=== PATIENT | male | born 1980 | race Caucasian/White ===

== ENCOUNTER 2016-08-30 08:27 | Outpatient (CLI) | payer OTHER ==
[2016-08-30 10:36] LABS: FREE T4 (FREE THYROXINE) 0.6 ng/dL (0.6-1.6); THYROID STIMULATING HORMONE 1.55 uIu/mL (0.34-4.82)
[2016-08-31 10:06] LABS: HEMOGLOBIN A1C 5.3 % (4.8-5.6)
== END 2016-08-30 21:10 | disposition home or self-care (01) ==
LOC: SLB 08:27
PROVIDERS: ATTEND Internal Medicine
DX: Z00.00 Encounter for general adult medical examination without abnormal findings (principal)
CPT/HCPCS: 36415; 80061; 82306; 82607; 83036; 84439; 84443-TC

== ENCOUNTER 2016-10-10 11:06 | Day surgery (SDC) | payer OTHER ==
[2016-10-08 10:44] LABS: BASOPHILS % (AUTO) 0.5 % (0.0-2.0); EOSINOPHILS # (AUTO) 0.3 K/uL (0.0-0.4); EOSINOPHILS % (AUTO) 3.9 % (0.0-4.0); HEMATOCRIT 42.7 % (36-54); HEMOGLOBIN 14.1 g/dL (14.0-18.0); LYMPHOCYTES % (AUTO) 29.8 % (20.5-51.5); MEAN CORPUSCULAR HEMOGLOBIN 29 pg (27-31); MEAN CORPUSCULAR HGB CONC 33 % (32-36); MEAN CORPUSCULAR VOLUME 88 fL (79.0-98.0); MONOCYTES # (AUTO) 0.5 K/uL (0.0-1.0); MONOCYTES % (AUTO) 7.2 % (1.7-9.3); NEUTROPHILS % (AUTO) 58.6 % (40.0-70.0); PLATELET COUNT (AUTO) 315 K/uL (130-430); RED BLOOD CELL COUNT(AUTO) 4.85 MIL/uL (4.2-6.2); RED CELL DISTRIBUTION WIDTH 11.8 % (9.0-15.0); WHITE BLOOD COUNT (AUTO) 6.8 K/uL (4.8-10.8)
[~2016-10-10] VITALS: Ht 172.7 cm; Wt 65.8 kg
[2016-10-10] MEDS ORDERED: LR 1,000 ML IV SCH (15:23)
[2016-10-10] MEDS ORDERED: HYDROmorphone 2 MG/ML VIAL IVP PRN ×2 (15:30)
[2016-10-10] MEDS ORDERED: MEPERIDINE HCL/PF 25 MG/ML DISP.SYRIN IVP PRN (15:30)
[2016-10-10] MEDS ORDERED: HYDROmorphone 1 MG INJ. 1 MG/ML AMPUL IVP PRN (15:30)
[2016-10-10 17:10] VITALS: BP_SYST 123
== END 2016-10-10 18:25 | disposition home or self-care (01) ==
LOC: SDS 11:06 → SMU 11:08 → SDS 18:25
PROVIDERS: ATTEND Otolaryngology
DX: J34.2 Deviated nasal septum (principal); J32.9 Chronic sinusitis, unspecified; J34.89 Other specified disorders of nose and nasal sinuses; F32.9 Major depressive disorder, single episode, unspecified; Z98.890 Other specified postprocedural states
CPT/HCPCS: 30140; 30520; 30999; 31255; 31256; 31297; 36415; 85025; 88305; C1726 ×2; J7120

== ENCOUNTER 2017-07-13 08:46 | Outpatient (CLI) | payer OTHER ==
[2017-07-13 10:48] LABS: BASOPHILS % (AUTO) 0.5 % (0.0-2.0); EOSINOPHILS # (AUTO) 0.2 K/uL (0.0-0.4); EOSINOPHILS % (AUTO) 2.6 % (0.0-4.0); HEMATOCRIT 45.9 % (36-54); HEMOGLOBIN 14.9 g/dL (14.0-18.0); LYMPHOCYTES # (AUTO) 2.7 K/uL (1.0-5.5); LYMPHOCYTES % (AUTO) 43.4 % (20.5-51.5); MEAN CORPUSCULAR HEMOGLOBIN 29 pg (27-31); MEAN CORPUSCULAR HGB CONC 33 % (32-36); MEAN CORPUSCULAR VOLUME 89 fL (79.0-98.0); MONOCYTES # (AUTO) 0.6 K/uL (0.0-1.0); MONOCYTES % (AUTO) 10.5 % (1.7-9.3); NEUTROPHILS # (AUTO) 2.7 K/uL (1.8-7.7); PLATELET COUNT (AUTO) 333 K/uL (130-430); RED BLOOD CELL COUNT(AUTO) 5.19 MIL/uL (4.2-6.2); RED CELL DISTRIBUTION WIDTH 13.6 % (9.0-15.0); WHITE BLOOD COUNT (AUTO) 6.2 K/uL (4.8-10.8)
[2017-07-13 11:03] LABS: ALBUMIN 4.3 g/dL (3.4-4.8); CALCIUM 9.3 mg/dL (8.4-11.0); CREATININE 1.24 mg/dL (0.55-1.30); THYROID STIMULATING HORMONE 1.7 uIu/mL (0.34-4.82); TOTAL BILIRUBIN 0.4 mg/dL (0.0-1.0)
[2017-07-13 11:39] LABS: ERYTHROCYTE SEDIMENTATION RATE 3 MM/HR (0-15)
[2017-07-14 11:30] LABS: ANTI NUCLEAR AB WITH REFLEX Negative (Negative)
[2017-07-14 14:35] LABS: T4 (THYROXINE) 7.3 ug/dL (4.5-12.0); TRIIODOTHYRONINE (T3) 126 ng/dL (71-180)
== END 2017-07-13 19:56 | disposition home or self-care (01) ==
LOC: SLB 08:46
PROVIDERS: ATTEND Family Medicine Sports Medicine
DX: Z00.01 Encounter for general adult medical examination with abnormal findings (principal); R79.89 Other specified abnormal findings of blood chemistry
CPT/HCPCS: 36415; 80053; 82785; 83605; 84436; 84443-TC; 84480; 85025; 85651-TC; 86038

== ENCOUNTER 2017-10-15 13:14 | Outpatient (CLI) | payer OTHER ==
[2017-10-15 15:05] LABS: BASOPHILS # (AUTO) 0.1 K/uL (0.0-0.2); BASOPHILS % (AUTO) 0.7 % (0.0-2.0); EOSINOPHILS # (AUTO) 0.8 K/uL (0.0-0.4); EOSINOPHILS % (AUTO) 11.8 % (0.0-4.0); HEMATOCRIT 42.3 % (36-54); HEMOGLOBIN 13.7 g/dL (14.0-18.0); LYMPHOCYTES # (AUTO) 2.2 K/uL (1.0-5.5); LYMPHOCYTES % (AUTO) 30.7 % (20.5-51.5); MEAN CORPUSCULAR HEMOGLOBIN 29 pg (27-31); MEAN CORPUSCULAR HGB CONC 32 % (32-36); MEAN CORPUSCULAR VOLUME 91 fL (79.0-98.0); MONOCYTES # (AUTO) 0.5 K/uL (0.0-1.0); MONOCYTES % (AUTO) 6.8 % (1.7-9.3); NEUTROPHILS # (AUTO) 3.6 K/uL (1.8-7.7); PLATELET COUNT (AUTO) 321 K/uL (130-430); RED BLOOD CELL COUNT(AUTO) 4.67 MIL/uL (4.2-6.2); RED CELL DISTRIBUTION WIDTH 11.7 % (9.0-15.0); WHITE BLOOD COUNT (AUTO) 7.2 K/uL (4.8-10.8)
[2017-10-15 15:07] LABS: BILIRUBIN,URINE NEGATIVE (NEGATIVE); BLOOD, URINE NEGATIVE (NEGATIVE); CLARITY/URINE CLEAR (CLEAR); COLOR,URINE YELLOW (YELLOW); GLUCOSE,URINE NEGATIVE (NEGATIVE); KETONES,URINE NEGATIVE (NEGATIVE); LEUKOCYTE ESTERASE ,URINE NEGATIVE (NEGATIVE); NITRITE, URINE NEGATIVE (NEGATIVE); PROTEIN URINE NEGATIVE (NEGATIVE); UROBILINOGEN,URINE 0.2 (0.2-1.0)
[2017-10-15 15:29] LABS: CALCIUM 9.2 mg/dL (8.4-11.0); CREATININE 0.99 mg/dL (0.55-1.30); POTASSIUM 3.7 mmol/L (3.5-5.1)
[2017-10-15 15:36] LABS: ALBUMIN 4.5 g/dL (3.4-4.8); TOTAL BILIRUBIN 0.3 mg/dL (0.0-1.0)
== END 2017-10-15 21:47 | disposition home or self-care (01) ==
LOC: SLB 13:14
PROVIDERS: ATTEND Emergency Medicine
DX: R10.9 Unspecified abdominal pain (principal)
CPT/HCPCS: 36415; 80053; 81003; 85025

== ENCOUNTER 2017-10-22 14:29 | Outpatient (CLI) | payer OTHER ==
[2017-10-22 15:30] LABS: BASOPHILS % (AUTO) 0.3 % (0.0-2.0); EOSINOPHILS # (AUTO) 0.6 K/uL (0.0-0.4); EOSINOPHILS % (AUTO) 8.6 % (0.0-4.0); HEMATOCRIT 41.8 % (36-54); HEMOGLOBIN 13.8 g/dL (14.0-18.0); LYMPHOCYTES # (AUTO) 2.2 K/uL (1.0-5.5); LYMPHOCYTES % (AUTO) 32.2 % (20.5-51.5); MEAN CORPUSCULAR HEMOGLOBIN 30 pg (27-31); MEAN CORPUSCULAR HGB CONC 33 % (32-36); MEAN CORPUSCULAR VOLUME 90 fL (79.0-98.0); MONOCYTES # (AUTO) 0.6 K/uL (0.0-1.0); MONOCYTES % (AUTO) 8.4 % (1.7-9.3); NEUTROPHILS # (AUTO) 3.5 K/uL (1.8-7.7); NEUTROPHILS % (AUTO) 50.5 % (40.0-70.0); PLATELET COUNT (AUTO) 304 K/uL (130-430); RED BLOOD CELL COUNT(AUTO) 4.65 MIL/uL (4.2-6.2); RED CELL DISTRIBUTION WIDTH 11.6 % (9.0-15.0); WHITE BLOOD COUNT (AUTO) 6.9 K/uL (4.8-10.8)
[2017-10-22 15:34] LABS: URIC ACID 3.5 mg/dL (2.4-7.0)
[2017-10-22 15:35] LABS: PROTHROMBIN TIME 10.4 SECS (9.5-12.5)
[2017-10-22 15:36] LABS: C-REACTIVE PROTEIN QUANT < 0.2 mg/dL (0-0.5)
[2017-10-22 17:14] LABS: ERYTHROCYTE SEDIMENTATION RATE 3 MM/HR (0-15)
[2017-10-23 07:17] LABS: THYROID PEROXIDASE (TPO) AB 38 IU/mL (0-34)
== END 2017-10-22 19:55 | disposition home or self-care (01) ==
LOC: SLB 14:29
PROVIDERS: ATTEND Internal Medicine
DX: Z00.01 Encounter for general adult medical examination with abnormal findings (principal); R79.89 Other specified abnormal findings of blood chemistry
CPT/HCPCS: 36415; 82306; 82607; 83735-TC; 84550-TC; 85025; 85610-TC; 85651-TC; 85730-TC; 86140

== ENCOUNTER 2017-12-02 07:48 | Emergency (ER) | payer OTHER ==
[~2017-12-02] VITALS: Ht 172.7 cm; Wt 68.0 kg
[2017-12-02 07:52] VITALS: BP_SYST 121
[2017-12-02 08:19] LABS: BASOPHILS # (AUTO) 0.1 K/uL (0.0-0.2); BASOPHILS % (AUTO) 0.8 % (0.0-2.0); EOSINOPHILS # (AUTO) 0.3 K/uL (0.0-0.4); EOSINOPHILS % (AUTO) 4.5 % (0.0-4.0); HEMATOCRIT 44.1 % (36-54); HEMOGLOBIN 14.8 g/dL (14.0-18.0); LYMPHOCYTES # (AUTO) 2.2 K/uL (1.0-5.5); LYMPHOCYTES % (AUTO) 29.9 % (20.5-51.5); MEAN CORPUSCULAR HEMOGLOBIN 30 pg (27-31); MEAN CORPUSCULAR HGB CONC 34 % (32-36); MEAN CORPUSCULAR VOLUME 90 fL (79.0-98.0); MONOCYTES # (AUTO) 0.7 K/uL (0.0-1.0); MONOCYTES % (AUTO) 9.4 % (1.7-9.3); NEUTROPHILS # (AUTO) 4.1 K/uL (1.8-7.7); NEUTROPHILS % (AUTO) 55.4 % (40.0-70.0); PLATELET COUNT (AUTO) 315 K/uL (130-430); RED BLOOD CELL COUNT(AUTO) 4.92 MIL/uL (4.2-6.2); RED CELL DISTRIBUTION WIDTH 12.1 % (9.0-15.0); WHITE BLOOD COUNT (AUTO) 7.4 K/uL (4.8-10.8)
[2017-12-02 08:34] LABS: CALCIUM 8.9 mg/dL (8.4-11.0); CREATININE 1.08 mg/dL (0.55-1.30); POTASSIUM 3.4 mmol/L (3.5-5.1)
[2017-12-02 09:14] VITALS: BP_SYST 117
== END 2017-12-02 09:14 | disposition home or self-care (01) ==
LOC: SED 07:48
DX: S20.212A Contusion of left front wall of thorax, initial encounter (principal); E87.6 Hypokalemia; Z88.6 Allergy status to analgesic agent; Z88.8 Allergy status to other drugs, medicaments and biological substances; Z90.49 Acquired absence of other specified parts of digestive tract; W19.XXXA Unspecified fall, initial encounter; Y93.89 Activity, other specified; Y92.89 Other specified places as the place of occurrence of the external cause; Y99.8 Other external cause status
CPT/HCPCS: 36415; 71045; 80048; 85025; 93005; 99285

== ENCOUNTER 2018-05-10 18:36 | Emergency (ER) | payer OTHER ==
[~2018-05-10] VITALS: Ht 172.7 cm; Wt 70.3 kg
[2018-05-10 18:42] VITALS: BP_SYST 134
[2018-05-10] MEDS ORDERED: DIPHENHYDRAMINE INJ 50 MG/ML VIAL IM ONE (19:00)
[2018-05-10] MEDS ORDERED: chlorproMAZINE HCL 50 MG/ 2 ML AMP IM ONE (19:00)
[2018-05-10] MEDS ORDERED: METOCLOPRAMIDE HCL 10 MG/2 ML VIAL IVP ONE (20:00)
[2018-05-10] MEDS ORDERED: DIPHENHYDRAMINE INJ 50 MG/ML VIAL IVP ONE (20:15)
[2018-05-10] MEDS ORDERED: NACL 0.9% 1,000 ML IV ONE (20:15)
[2018-05-10 21:25] VITALS: BP_SYST 131
== END 2018-05-10 21:25 | disposition home or self-care (01) ==
LOC: SED 18:36
DX: R06.6 Hiccough (principal); K21.9 Gastro-esophageal reflux disease without esophagitis; R03.0 Elevated blood-pressure reading, without diagnosis of hypertension; F32.9 Major depressive disorder, single episode, unspecified; Z90.49 Acquired absence of other specified parts of digestive tract; Z88.5 Allergy status to narcotic agent; Z88.6 Allergy status to analgesic agent; Z88.8 Allergy status to other drugs, medicaments and biological substances
CPT/HCPCS: 96372; 96374; 96375; 99283; J1200; J2765; J3230; J7030

== ENCOUNTER 2018-05-24 06:15 | Outpatient (CLI) | payer OTHER ==
[2018-05-24 07:26] LABS: BASOPHILS % (AUTO) 0.7 % (0.0-2.0); EOSINOPHILS # (AUTO) 0.3 K/uL (0.0-0.4); EOSINOPHILS % (AUTO) 5.3 % (0.0-4.0); HEMATOCRIT 40.7 % (36-54); HEMOGLOBIN 13.3 g/dL (14.0-18.0); LYMPHOCYTES % (AUTO) 31.8 % (20.5-51.5); MEAN CORPUSCULAR HEMOGLOBIN 30 pg (27-31); MEAN CORPUSCULAR HGB CONC 33 % (32-36); MEAN CORPUSCULAR VOLUME 91 fL (79.0-98.0); MONOCYTES # (AUTO) 0.6 K/uL (0.0-1.0); MONOCYTES % (AUTO) 10.5 % (1.7-9.3); NEUTROPHILS # (AUTO) 3.3 K/uL (1.8-7.7); NEUTROPHILS % (AUTO) 51.7 % (40.0-70.0); PLATELET COUNT (AUTO) 328 K/uL (130-430); RED BLOOD CELL COUNT(AUTO) 4.46 MIL/uL (4.2-6.2); RED CELL DISTRIBUTION WIDTH 11.8 % (9.0-15.0); WHITE BLOOD COUNT (AUTO) 6.2 K/uL (4.8-10.8)
[2018-05-24 08:06] LABS: ERYTHROCYTE SEDIMENTATION RATE 8 MM/HR (0-15)
[2018-05-24 08:25] LABS: CALCIUM 8.6 mg/dL (8.4-11.0)
[2018-05-24 08:26] LABS: ALBUMIN 4.2 g/dL (3.4-4.8); CREATININE 0.87 mg/dL (0.55-1.30); TOTAL BILIRUBIN 0.2 mg/dL (0.0-1.0)
[2018-05-24 08:27] LABS: FREE T4 (FREE THYROXINE) 0.6 ng/dL (0.6-1.6); THYROID STIMULATING HORMONE 1.35 uIu/mL (0.34-4.82)
[2018-05-26 08:51] LABS: HEMOGLOBIN A1C 5.1 % (4.8-5.6); TRIIODOTHYRONINE, FREE 2.6 pg/mL (2.0-4.4)
[2018-05-26 10:29] LABS: ANTI-THYROGLOBULIN AB <1.0
== END 2018-05-24 20:47 | disposition home or self-care (01) ==
LOC: SLB 06:15
PROVIDERS: ATTEND Internal Medicine
DX: R94.6 Abnormal results of thyroid function studies (principal)
CPT/HCPCS: 36415; 80053; 80061; 83036; 84439; 84443-TC; 84481; 85025; 85651-TC; 86800

== ENCOUNTER 2018-07-28 02:43 | Outpatient (CLI) | payer OTHER ==
[2018-07-29 10:17] LABS: RUBELLA AB, IgG 1.44 index (Immune >0.99)
[2018-07-29 10:18] LABS: VARICELLA ZOSTER IgG 3281 index (Immune >165)
[2018-07-29 11:17] LABS: HEPATITIS B CORE AB, IgM Negative (Negative); HEPATITIS B CORE AB, TOTAL Negative (Negative); HEPATITIS B SURFACE AG Negative (Negative)
[2018-07-30 10:23] LABS: HEPATITIS Be AG Negative (Negative)
[2018-07-30 11:22] LABS: RUBELLA AB, IgM <20.0 AU/mL (0.0-19.9)
[2018-08-03 04:30] LABS: HEPATITIS Be AB Negative (Negative)
== END 2018-07-28 21:21 | disposition home or self-care (01) ==
LOC: SLB 02:43
PROVIDERS: ATTEND Emergency Medicine
DX: Z01.84 Encounter for antibody response examination (principal)
CPT/HCPCS: 36415; 86704; 86705; 86706; 86707; 86735; 86762; 86765; 86787; 87340; 87350

== ENCOUNTER 2018-12-04 09:30 | Outpatient (CLI) | payer OTHER | END 2018-12-04 14:00 | disposition home or self-care (01) | LOC: SUS 09:30 | PROVIDERS: ATTEND Internal Medicine | DX: E04.1 Nontoxic single thyroid nodule (principal) | CPT/HCPCS: 76536-TC ==

== ENCOUNTER 2019-02-20 17:03 | Emergency (ER) | payer OTHER ==
[~2019-02-20] VITALS: Ht 172.7 cm; Wt 65.8 kg
[2019-02-20 17:04] VITALS: BP_SYST 127
--- NOTE | 2019-02-20 17:04 | NUR ---
BROUGHT BACK TO BED #7 AND TRIAGED. REPORT GIVEN TO ANAY
--- NOTE | 2019-02-20 17:10 | NUR ---
Patient presented to ER with cough, harseness, sore throat pain, nasal congestion. Patient A&Ox4, afebrile, ambulatory to ER, pain 4/10, denies N/V/D, skin pink & warm. Patient states nasal congestion x1 week, cough with yellow sputum x3 days, patient also has right neck gland swelling.
--- NOTE | 2019-02-20 17:12 | NUR ---
ER Dr. Bach at bedside examining patient.
[2019-02-20 17:18] VITALS: BP_SYST 127
--- NOTE | 2019-02-20 17:18 | NUR ---
Patient given written and verbal discharge instructions and verbalizes understanding. ER MD discussed with patient the results and treatment provided. Patient in stable condition. ID arm band removed. Rx of Augmentin given. Patient educated on pain management and to follow up with PMD. Pain Scale4/10 tolerable for patient . Opportunity for questions provided and answered. Medication side effect fact sheet provided.
== END 2019-02-20 17:18 | disposition home or self-care (01) ==
LOC: SED 17:03
DX: J20.9 Acute bronchitis, unspecified (principal); J04.0 Acute laryngitis; F32.9 Major depressive disorder, single episode, unspecified; Z88.5 Allergy status to narcotic agent; Z88.6 Allergy status to analgesic agent; Z90.89 Acquired absence of other organs
CPT/HCPCS: 99283

== ENCOUNTER 2019-05-24 13:39 | Emergency (ER) | payer OTHER ==
[~2019-05-24] VITALS: Ht 172.7 cm; Wt 68.0 kg
[2019-05-24 13:39] VITALS: BP_SYST 130
--- NOTE | 2019-05-24 13:39 | NUR ---
Patient to ER bed 04 to gown for evaluation. Side rails up.
--- NOTE | 2019-05-24 13:39 | NUR ---
ECG done at bedside as ordered by Dr. Bloom. Patient tolerated the procedure well. Report given to MD for review.
--- NOTE | 2019-05-24 13:42 | NUR ---
Patient arrived in the ED c/o non-reproducible Left-sided chest pain that radiates to the left arm with shortness of breath and diaphoresis that started at 10AM. Denied any recent trauma or falls. Denied any fevers, chills, nausea or vomiting. Patient is alert and oriented x4, respirations even and unlabored, speaking in full sentences and ambulating with a steady gait. VSS except tachycardic, pain level 8/10. Friend at bedside. Informed of the approximate wait time. Instructed to notify ED staff for any changes in condition or worsening of symptoms. Patient verbalized understanding.
--- NOTE | 2019-05-24 13:45 | NUR ---
ER Dr. Bloom at bedside examining patient.
[2019-05-24] MEDS ORDERED: NITROGLYCERIN 0.4 MG TAB.SUBL SL ONE (14:00)
[2019-05-24] MEDS ORDERED: LORazepam 2 MG/ML VIAL IVP ONE (14:00)
[2019-05-24] MEDS ORDERED: ASPIRIN 81 MG TAB.CHEW PO ONE (14:00)
--- NOTE | 2019-05-24 14:07 | NUR ---
ER Dr. Isabel at bedside re-examining patient.
--- NOTE | 2019-05-24 14:08 | NUR ---
Administered ASA and Nitro PO, Lorazepam IVP as ordered by Dr. Bloom. Patient tolerated the medications well. See eMAR for details.
[2019-05-24 14:11] LABS: BASOPHILS % (AUTO) 0.5 % (0.0-2.0); EOSINOPHILS # (AUTO) 0.2 K/uL (0.0-0.4); EOSINOPHILS % (AUTO) 2.4 % (0.0-4.0); HEMATOCRIT 40.5 % (36-54); HEMOGLOBIN 13.8 g/dL (14.0-18.0); LYMPHOCYTES % (AUTO) 31.1 % (20.5-51.5); MEAN CORPUSCULAR HEMOGLOBIN 31 pg (27-31); MEAN CORPUSCULAR HGB CONC 34 % (32-36); MEAN CORPUSCULAR VOLUME 90 fL (79.0-98.0); MONOCYTES # (AUTO) 0.6 K/uL (0.0-1.0); NEUTROPHILS # (AUTO) 3.7 K/uL (1.8-7.7); PLATELET COUNT (AUTO) 300 K/uL (130-430); RED BLOOD CELL COUNT(AUTO) 4.51 MIL/uL (4.2-6.2); RED CELL DISTRIBUTION WIDTH 12.6 % (9.0-15.0); WHITE BLOOD COUNT (AUTO) 6.5 K/uL (4.8-10.8)
[2019-05-24] MEDS ORDERED: BUPR-120 PO (14:12)
[2019-05-24] MEDS ORDERED: TRAZ-250 PO (14:12)
[2019-05-24] MEDS ORDERED: VENL75CA PO (14:12)
[2019-05-24] MEDS ORDERED: LAMO200T2 PO (14:12)
--- NOTE | 2019-05-24 14:14 | NUR ---
Administered Zofran IVP as ordered by Dr. Bloom. Patient tolerated the medications well. See eMAR for details.
[2019-05-24] MEDS ORDERED: ONDANSETRON HCL 4 MG/2 ML VIAL IVP ONE (14:15)
--- NOTE | 2019-05-24 14:20 | NUR ---
X-ray done at bedside as ordered by Dr. Bloom. Patient tolerated the procedure well.
[2019-05-24 14:31] LABS: CALCIUM 8.4 mg/dL (8.4-11.0); CREATININE 0.98 mg/dL (0.55-1.30); POTASSIUM 3.7 mmol/L (3.5-5.1)
[2019-05-24 14:35] LABS: ALBUMIN 4.2 g/dL (3.4-4.8); TOTAL BILIRUBIN 0.5 mg/dL (0.0-1.0)
[2019-05-24 14:42] LABS: INR 1.1 (0.80-1.20); PROTHROMBIN TIME 10.7 SECS (9.5-12.5)
--- NOTE | 2019-05-24 14:55 | NUR ---
Urine specimen collected and dropped off at the lab as ordered by Dr. Bloom.
--- NOTE | 2019-05-24 14:56 | NUR ---
Patient is resting comfortably in bed, respirations even and unlabored. Friend at bedside.
[2019-05-24 15:08] LABS: BILIRUBIN,URINE NEGATIVE (NEGATIVE); BLOOD, URINE NEGATIVE (NEGATIVE); CLARITY/URINE CLEAR (CLEAR); COLOR,URINE YELLOW (YELLOW); GLUCOSE,URINE NEGATIVE (NEGATIVE); KETONES,URINE NEGATIVE (NEGATIVE); LEUKOCYTE ESTERASE ,URINE NEGATIVE (NEGATIVE); NITRITE, URINE NEGATIVE (NEGATIVE); PROTEIN URINE NEGATIVE (NEGATIVE); UROBILINOGEN,URINE 0.2 (0.2-1.0)
--- NOTE | 2019-05-24 15:27 | NUR ---
ER Dr. Bloom at bedside discussing test results with the patient.
--- NOTE | 2019-05-24 16:05 | NUR ---
Patient is resting comfortably in bed, denied any chest pain or shortness of breath at this time.
--- NOTE | 2019-05-24 17:36 | NUR ---
Patient is resting comfortably in bed, respirations even and unlabored, VSS.
--- NOTE | 2019-05-24 17:43 | NUR ---
Discontinued IV as ordered by Dr. Bloom. Catheter intact. Patient tolerated the medication well.
[2019-05-24 17:45] VITALS: BP_SYST 98
--- NOTE | 2019-05-24 17:45 | NUR ---
Patient given written and verbal discharge instructions and verbalizes understanding. ER MD discussed with patient the results and treatment provided. Patient in stable condition. ID arm band removed. IV catheter removed intact and dressing applied, no active bleeding. Rx of Lopressor given. Patient educated on pain management and to follow up with PMD. Pain Scale 0/10. Opportunity for questions provided and answered. Medication side effect fact sheet provided.
== END 2019-05-24 17:45 | disposition home or self-care (01) ==
LOC: SED 13:39
DX: R07.89 Other chest pain (principal); F32.9 Major depressive disorder, single episode, unspecified; K21.9 Gastro-esophageal reflux disease without esophagitis; Z88.5 Allergy status to narcotic agent; Z88.6 Allergy status to analgesic agent; Z79.899 Other long term (current) drug therapy
CPT/HCPCS: 36415; 71045; 80053; 81003; 82550; 83880; 84484; 85025; 85379; 85610; 85730; 93005; 96374; 96375; 99284; J2060; J2405

== ENCOUNTER 2019-06-21 07:25 | Outpatient (CLI) | payer OTHER ==
[~2019-06-21 07:25] MED LIST: BUPR-120 PO; LAMO200T2 PO; TRAZ-250 PO; VENL75CA PO
== END 2019-06-21 21:06 | disposition home or self-care (01) ==
LOC: SUS 07:25
PROVIDERS: ATTEND Internal Medicine
DX: N50.3 Cyst of epididymis (principal); N43.3 Hydrocele, unspecified; E04.1 Nontoxic single thyroid nodule
CPT/HCPCS: 76536-TC; 76870-TC

== ENCOUNTER → 2019-07-10 | Outpatient (CLI) | payer OTHER ==
[2019-07-10 21:29] LABS: BASOPHILS % (AUTO) 0.6 % (0.0-2.0); EOSINOPHILS # (AUTO) 0.3 K/uL (0.0-0.4); EOSINOPHILS % (AUTO) 4.5 % (0.0-4.0); HEMATOCRIT 40.5 % (36-54); HEMOGLOBIN 13.5 g/dL (14.0-18.0); LYMPHOCYTES # (AUTO) 2.2 K/uL (1.0-5.5); MEAN CORPUSCULAR HEMOGLOBIN 30 pg (27-31); MEAN CORPUSCULAR HGB CONC 33 % (32-36); MEAN CORPUSCULAR VOLUME 91 fL (79.0-98.0); MONOCYTES # (AUTO) 0.5 K/uL (0.0-1.0); NEUTROPHILS # (AUTO) 2.7 K/uL (1.8-7.7); NEUTROPHILS % (AUTO) 46.9 % (40.0-70.0); PLATELET COUNT (AUTO) 261 K/uL (130-430); RED BLOOD CELL COUNT(AUTO) 4.48 MIL/uL (4.2-6.2); RED CELL DISTRIBUTION WIDTH 12.9 % (9.0-15.0); WHITE BLOOD COUNT (AUTO) 5.7 K/uL (4.8-10.8)
[2019-07-10 22:00] LABS: CALCIUM 8.8 mg/dL (8.4-11.0); CREATININE 0.98 mg/dL (0.55-1.30); POTASSIUM 3.8 mmol/L (3.5-5.1)
[2019-07-10 22:10] LABS: ALBUMIN 3.8 g/dL (3.4-4.8); THYROID STIMULATING HORMONE 3.03 uIu/mL (0.34-4.82); TOTAL BILIRUBIN 0.4 mg/dL (0.0-1.0)
[2019-07-10 22:16] LABS: URIC ACID 3.7 mg/dL (2.4-7.0)
[2019-07-11 00:25] LABS: BILIRUBIN,URINE NEGATIVE (NEGATIVE); BLOOD, URINE NEGATIVE (NEGATIVE); CLARITY/URINE CLEAR (CLEAR); COLOR,URINE YELLOW (YELLOW); GLUCOSE,URINE NEGATIVE (NEGATIVE); KETONES,URINE NEGATIVE (NEGATIVE); LEUKOCYTE ESTERASE ,URINE NEGATIVE (NEGATIVE); NITRITE, URINE NEGATIVE (NEGATIVE); PROTEIN URINE NEGATIVE (NEGATIVE)
== END | disposition home or self-care (01) ==
LOC: SLB 20:12
PROVIDERS: ATTEND Internal Medicine
DX: Z00.00 Encounter for general adult medical examination without abnormal findings (principal)
CPT/HCPCS: 36415; 80053; 80061; 81003; 82306; 82607; 83036; 84436; 84443-TC; 84550-TC; 85025; 86376

== ENCOUNTER 2019-12-02 09:44 | Outpatient (CLI) | payer OTHER ==
[2019-12-03 09:39] LABS: BASOPHILS % (AUTO) 0.4 % (0.0-2.0); EOSINOPHILS # (AUTO) 0.3 K/uL (0.0-0.4); EOSINOPHILS % (AUTO) 3.5 % (0.0-4.0); HEMATOCRIT 41.6 % (36-54); HEMOGLOBIN 13.9 g/dL (14.0-18.0); LYMPHOCYTES # (AUTO) 3.1 K/uL (1.0-5.5); LYMPHOCYTES % (AUTO) 36.7 % (20.5-51.5); MEAN CORPUSCULAR HEMOGLOBIN 30 pg (27-31); MEAN CORPUSCULAR HGB CONC 34 % (32-36); MEAN CORPUSCULAR VOLUME 90 fL (79.0-98.0); MONOCYTES # (AUTO) 0.6 K/uL (0.0-1.0); MONOCYTES % (AUTO) 6.9 % (1.7-9.3); NEUTROPHILS # (AUTO) 4.4 K/uL (1.8-7.7); NEUTROPHILS % (AUTO) 52.5 % (40.0-70.0); PLATELET COUNT (AUTO) 309 K/uL (130-430); RED CELL DISTRIBUTION WIDTH 12.8 % (9.0-15.0); WHITE BLOOD COUNT (AUTO) 8.4 K/uL (4.8-10.8)
[2019-12-03 10:11] LABS: ALBUMIN 4.3 g/dL (3.4-4.8); CALCIUM 9.3 mg/dL (8.4-11.0); CREATININE 1.01 mg/dL (0.55-1.30); POTASSIUM 3.9 mmol/L (3.5-5.1); THYROID STIMULATING HORMONE 5.66 uIu/mL (0.36-3.74); TOTAL BILIRUBIN 0.3 mg/dL (0.0-1.0)
[2019-12-04 07:11] LABS: HEMOGLOBIN A1C 5.3 % (4.8-5.6)
[2019-12-04 10:05] LABS: BILIRUBIN,URINE NEGATIVE (NEGATIVE); BLOOD, URINE NEGATIVE (NEGATIVE); CLARITY/URINE CLEAR (CLEAR); COLOR,URINE YELLOW (YELLOW); GLUCOSE,URINE NEGATIVE (NEGATIVE); KETONES,URINE NEGATIVE (NEGATIVE); LEUKOCYTE ESTERASE ,URINE NEGATIVE (NEGATIVE); NITRITE, URINE NEGATIVE (NEGATIVE); PROTEIN URINE NEGATIVE (NEGATIVE); UROBILINOGEN,URINE 0.2 (0.2-1.0)
== END 2019-12-02 20:56 | disposition home or self-care (01) ==
LOC: SLB 09:44
PROVIDERS: ATTEND Internal Medicine
DX: Z01.818 Encounter for other preprocedural examination (principal); I07.1 Rheumatic tricuspid insufficiency
CPT/HCPCS: 36415; 71046-TC; 80053; 80061; 81003; 82306; 82607; 83036; 84443-TC; 85025; 93005; 93306

== ENCOUNTER 2019-12-07 09:25 | Outpatient (CLI) | payer OTHER ==
[2019-12-07 10:39] LABS: FREE T4 (FREE THYROXINE) 1.6 ng/dl (0.8-1.5); THYROID STIMULATING HORMONE 5.02 uIu/mL (0.36-3.74)
== END 2019-12-07 22:27 | disposition home or self-care (01) ==
LOC: SLB 09:25
PROVIDERS: ATTEND Internal Medicine
DX: E07.9 Disorder of thyroid, unspecified (principal)
CPT/HCPCS: 36415; 84439; 84443-TC; 86376

== ENCOUNTER 2019-12-29 15:29 | Emergency (ER) | payer OTHER ==
[~2019-12-29] VITALS: Ht 172.7 cm; Wt 70.3 kg
[2019-12-29 15:30] VITALS: BP_SYST 119
--- NOTE | 2019-12-29 15:30 | NUR ---
ER at bedside examining patient.
--- NOTE | 2019-12-29 15:35 | NUR ---
Patient to ER bed HALLWAY to gown for evaluation. Side rails up.
--- NOTE | 2019-12-29 15:38 | NUR ---
PT AAO AND AMBULATORY C/O RIGHT HAND PAIN AFTER FALLING OFF HIS DESK WHEN HE WAS CHANGING A LIGHT BULB. NO OBVIOUS DEFORMITY ONLY REDNESS.
--- NOTE | 2019-12-29 15:58 | NUR ---
Patient given written and verbal discharge instructions and verbalizes understanding. DR. JAYLENE CORDERO MD discussed with patient the results and treatment provided. Patient in stable condition. ID arm band removed. Patient educated on pain management and to follow up with PMD. Pain Scale 2/10.Opportunity for questions provided and answered.
== END 2019-12-29 15:58 | disposition home or self-care (01) ==
LOC: SED 15:29
DX: S60.221A Contusion of right hand, initial encounter (principal); K21.9 Gastro-esophageal reflux disease without esophagitis; N28.9 Disorder of kidney and ureter, unspecified; Z79.899 Other long term (current) drug therapy; Z88.6 Allergy status to analgesic agent; W18.39XA Other fall on same level, initial encounter; Y93.89 Activity, other specified; Y92.89 Other specified places as the place of occurrence of the external cause; Y99.8 Other external cause status
CPT/HCPCS: 99283

== ENCOUNTER 2020-01-20 06:35 | Day surgery (SDC) | payer OTHER ==
[2020-01-10 09:10] LABS: BASOPHILS % (AUTO) 0.5 % (0.0-2.0); EOSINOPHILS # (AUTO) 0.3 K/uL (0.0-0.4); EOSINOPHILS % (AUTO) 4.3 % (0.0-4.0); HEMATOCRIT 38.7 % (36-54); HEMOGLOBIN 13.3 g/dL (14.0-18.0); LYMPHOCYTES # (AUTO) 2.7 K/uL (1.0-5.5); LYMPHOCYTES % (AUTO) 34.7 % (20.5-51.5); MEAN CORPUSCULAR HEMOGLOBIN 31 pg (27-31); MEAN CORPUSCULAR HGB CONC 34 % (32-36); MEAN CORPUSCULAR VOLUME 90 fL (79.0-98.0); MONOCYTES # (AUTO) 0.7 K/uL (0.0-1.0); MONOCYTES % (AUTO) 9.5 % (1.7-9.3); NEUTROPHILS # (AUTO) 3.9 K/uL (1.8-7.7); PLATELET COUNT (AUTO) 309 K/uL (130-430); RED BLOOD CELL COUNT(AUTO) 4.31 MIL/uL (4.2-6.2); RED CELL DISTRIBUTION WIDTH 12.7 % (9.0-15.0); WHITE BLOOD COUNT (AUTO) 7.7 K/uL (4.8-10.8)
[2020-01-10 09:17] LABS: CALCIUM 8.9 mg/dL (8.4-11.0); CREATININE 1.15 mg/dL (0.55-1.30); POTASSIUM 3.7 mmol/L (3.5-5.1)
[~2020-01-20] VITALS: Ht 172.7 cm; Wt 68.0 kg
[2020-01-20] MEDS ORDERED: PROPOFOL 200MG/ 20ML VIAL (DIPRIVAN) IV ONE (07:39)
[2020-01-20] MEDS ORDERED: NS IRRIG SOLN 1000 ML IR ONE (07:39)
[2020-01-20] MEDS ORDERED: fentaNYL CITRATE/PF 100 MCG/2 ML AMP IVP ONE (07:39)
[2020-01-20] MEDS ORDERED: NS 1000 ML IV.SOLN IV ONE (07:39)
[2020-01-20] MEDS ORDERED: DESFLURANE 15 MIN GAS INH ONE (07:39)
[2020-01-20] MEDS ORDERED: HYDROmorphone 2 MG/ML VIAL IVP ONE (07:39)
[2020-01-20] MEDS ORDERED: OXYMETAZOLINE HCL 0.05% NASAL SPRAY NS ONE (07:39)
[2020-01-20] MEDS ORDERED: EPINEPHrine 1 MG/ML AMP INFIL ONE (07:39)
[2020-01-20] MEDS ORDERED: ONDANSETRON HCL 4 MG/2 ML VIAL IVP ONE (07:39)
[2020-01-20] MEDS ORDERED: WATER FOR IRRIGATION,STERILE 1,000 ML IRRIG.SOLN IR ONE (07:39)
[2020-01-20] MEDS ORDERED: KETOROLAC TROMETHAMINE 30 MG VIAL IVP ONE (07:39)
[2020-01-20] MEDS ORDERED: LIDOCAINE/EPI 1% 1:100000 20 ML VIAL INJ ONE (07:39)
[2020-01-20] MEDS ORDERED: MIDAZOLAM HCL 5 MG/ML VIAL (VERSED) IV ONE (07:39)
[2020-01-20] MEDS ORDERED: DEXAMETHASONE SOD PHOSPHATE 4 MG/ML VIAL IVP ONE (07:39)
[2020-01-20] MEDS ORDERED: SUCCINYLCHOLINE CHLORIDE 20 MG/ML(QUELICIN) IVP ONE (07:39)
[2020-01-20] MEDS ORDERED: HYDROmorphone 1 MG INJ. 1 MG/ML AMPUL IVP PRN ×2 (08:30)
[2020-01-20] MEDS ORDERED: KETOROLAC TROMETHAMINE 30 MG VIAL ONE (09:02)
[2020-01-20] MEDS ORDERED: HYDROmorphone 1 MG INJ. 1 MG/ML AMPUL ONE (09:27)
[2020-01-20 13:21] VITALS: BP_SYST 109
== END 2020-01-20 11:50 | disposition home or self-care (01) ==
LOC: SDS 06:35 → SMU 06:39 → SDS 11:50
PROVIDERS: ATTEND Otolaryngology
DX: J32.4 Chronic pansinusitis (principal); J34.2 Deviated nasal septum; E03.9 Hypothyroidism, unspecified; F32.9 Major depressive disorder, single episode, unspecified; K21.9 Gastro-esophageal reflux disease without esophagitis; R09.82 Postnasal drip; Z79.899 Other long term (current) drug therapy; Z20.828 Contact with and (suspected) exposure to other viral communicable diseases
CPT/HCPCS: 31256; 36415; 80048; 85025; 87070; 87075; 87101; 87186; 88305; 93005; J0171; J0330; J1100; J1170 ×2; J1885; J2250; J2405; J2704; J3010; J7030; U0003; 88311

== ENCOUNTER → 2020-02-07 | Outpatient (CLI) | payer OTHER ==
[2020-02-07 09:40] LABS: BASOPHILS % (AUTO) 0.6 % (0.0-2.0); EOSINOPHILS # (AUTO) 0.4 K/uL (0.0-0.4); EOSINOPHILS % (AUTO) 5.4 % (0.0-4.0); HEMATOCRIT 39.2 % (36-54); HEMOGLOBIN 13.1 g/dL (14.0-18.0); LYMPHOCYTES % (AUTO) 38.5 % (20.5-51.5); MEAN CORPUSCULAR HEMOGLOBIN 30 pg (27-31); MEAN CORPUSCULAR HGB CONC 34 % (32-36); MEAN CORPUSCULAR VOLUME 90 fL (79.0-98.0); MONOCYTES # (AUTO) 0.6 K/uL (0.0-1.0); MONOCYTES % (AUTO) 7.6 % (1.7-9.3); NEUTROPHILS # (AUTO) 3.7 K/uL (1.8-7.7); NEUTROPHILS % (AUTO) 47.9 % (40.0-70.0); PLATELET COUNT (AUTO) 276 K/uL (130-430); RED BLOOD CELL COUNT(AUTO) 4.37 MIL/uL (4.2-6.2); RED CELL DISTRIBUTION WIDTH 12.7 % (9.0-15.0); WHITE BLOOD COUNT (AUTO) 7.7 K/uL (4.8-10.8)
[2020-02-07 10:14] LABS: CALCIUM 8.7 mg/dL (8.4-11.0); CREATININE 1.13 mg/dL (0.55-1.30); FREE T4 (FREE THYROXINE) 0.8 ng/dl (0.8-1.5); POTASSIUM 3.9 mmol/L (3.5-5.1); THYROID STIMULATING HORMONE 5.67 uIu/mL (0.36-3.74)
[2020-02-08 08:07] LABS: CORTISOL (SERUM) 16.3 ug/dL (.); TRIIODOTHYRONINE, FREE 3.1 pg/mL (2.0-4.4)
== END | disposition home or self-care (01) ==
LOC: SLB 08:00
PROVIDERS: ATTEND Internal Medicine
DX: E03.9 Hypothyroidism, unspecified (principal)
CPT/HCPCS: 36415; 80048; 80061; 82306; 82533; 84439; 84443-TC; 84481; 85025; 86376

== ENCOUNTER 2020-02-20 08:58 | Outpatient (CLI) | payer OTHER | END 2020-02-20 20:51 | disposition home or self-care (01) | LOC: SUS 08:58 | PROVIDERS: ATTEND Internal Medicine | DX: E04.1 Nontoxic single thyroid nodule (principal) | CPT/HCPCS: 76536-TC ==

== ENCOUNTER 2020-03-26 09:20 | Outpatient (CLI) | payer OTHER ==
[2020-03-26 09:39] LABS: BASOPHILS % (AUTO) 0.4 % (0.0-2.0); EOSINOPHILS # (AUTO) 0.4 K/uL (0.0-0.4); EOSINOPHILS % (AUTO) 4.3 % (0.0-4.0); HEMATOCRIT 40.6 % (36-54); HEMOGLOBIN 13.6 g/dL (14.0-18.0); LYMPHOCYTES # (AUTO) 3.1 K/uL (1.0-5.5); LYMPHOCYTES % (AUTO) 35.6 % (20.5-51.5); MEAN CORPUSCULAR HEMOGLOBIN 30 pg (27-31); MEAN CORPUSCULAR HGB CONC 34 % (32-36); MEAN CORPUSCULAR VOLUME 89 fL (79.0-98.0); MONOCYTES # (AUTO) 0.7 K/uL (0.0-1.0); MONOCYTES % (AUTO) 7.9 % (1.7-9.3); NEUTROPHILS # (AUTO) 4.5 K/uL (1.8-7.7); NEUTROPHILS % (AUTO) 51.8 % (40.0-70.0); PLATELET COUNT (AUTO) 312 K/uL (130-430); RED BLOOD CELL COUNT(AUTO) 4.55 MIL/uL (4.2-6.2); RED CELL DISTRIBUTION WIDTH 12.6 % (9.0-15.0); WHITE BLOOD COUNT (AUTO) 8.7 K/uL (4.8-10.8)
[2020-03-26 11:20] LABS: ALBUMIN 4.1 g/dL (3.4-4.8); CALCIUM 8.7 mg/dL (8.4-11.0); CREATININE 1.06 mg/dL (0.55-1.30); FREE T4 (FREE THYROXINE) 1.3 ng/dl (0.8-1.5); POTASSIUM 4.2 mmol/L (3.5-5.1); THYROID STIMULATING HORMONE 5.48 uIu/mL (0.36-3.74); TOTAL BILIRUBIN 0.2 mg/dL (0.0-1.0)
== END 2020-03-26 20:18 | disposition home or self-care (01) ==
LOC: SLB 09:20
PROVIDERS: ATTEND Internal Medicine
DX: E03.9 Hypothyroidism, unspecified (principal)
CPT/HCPCS: 36415; 80053; 84439; 84443-TC; 85025; 86376

== ENCOUNTER 2020-04-23 10:36 | Emergency (ER) | payer OTHER ==
[~2020-04-23] VITALS: Ht 172.7 cm; Wt 68.0 kg
[2020-04-23 10:40] VITALS: BP_SYST 122
[2020-04-24 07:08] LABS: HEPATITIS B CORE AB, TOTAL Negative (Negative); HEPATITIS B SURFACE AG Negative (Negative); HEPATITIS C VIRUS AB <0.1 s/co ratio (0.0-0.9)
== END 2020-04-23 10:51 | disposition home or self-care (01) ==
LOC: SED 10:36
DX: S69.81XA Other specified injuries of right wrist, hand and finger(s), initial encounter (principal); W22.8XXA Striking against or struck by other objects, initial encounter; Y93.89 Activity, other specified; Y92.89 Other specified places as the place of occurrence of the external cause; Y99.8 Other external cause status
CPT/HCPCS: 36415; 86704; 86706; 86803; 87340; 99283

== ENCOUNTER 2020-05-27 02:26 | Outpatient (CLI) | payer OTHER ==
[2020-05-27 07:36] LABS: FREE T4 (FREE THYROXINE) 0.9 ng/dl (0.8-1.5); THYROID STIMULATING HORMONE 2.73 uIu/mL (0.36-3.74)
== END 2020-05-27 19:34 | disposition home or self-care (01) ==
LOC: SLB 02:26
PROVIDERS: ATTEND Internal Medicine
DX: E03.9 Hypothyroidism, unspecified (principal)
CPT/HCPCS: 36415; 84439; 84443-TC; 86376

== ENCOUNTER 2020-06-29 19:25 | Outpatient (CLI) | payer OTHER ==
[2020-07-01 08:06] LABS: HEPATITIS B CORE AB, TOTAL Negative (Negative); HEPATITIS B SURFACE AG Negative (Negative); HEPATITIS C VIRUS AB <0.1 s/co ratio (0.0-0.9); IMMUNOGLOBULIN G, SERUM 953 mg/dL (603-1613); IMMUNOGLOBULIN M, SERUM 132 mg/dL (20-172)
== END 2020-06-29 21:26 | disposition home or self-care (01) ==
LOC: SLB 19:25
PROVIDERS: ATTEND Otolaryngology
DX: J30.1 Allergic rhinitis due to pollen (principal)
CPT/HCPCS: 36415; 82784; 86704; 86706; 86803; 87340

== ENCOUNTER 2020-09-15 06:24 | Outpatient (CLI) | payer OTHER ==
[2020-09-15 08:58] LABS: BASOPHILS % (AUTO) 0.4 % (0.0-2.0); EOSINOPHILS # (AUTO) 0.4 K/uL (0.0-0.4); EOSINOPHILS % (AUTO) 4.8 % (0.0-4.0); HEMATOCRIT 43.7 % (36-54); HEMOGLOBIN 14.2 g/dL (14.0-18.0); LYMPHOCYTES # (AUTO) 3.1 K/uL (1.0-5.5); LYMPHOCYTES % (AUTO) 39.1 % (20.5-51.5); MEAN CORPUSCULAR HEMOGLOBIN 29 pg (27-31); MEAN CORPUSCULAR HGB CONC 32 % (32-36); MEAN CORPUSCULAR VOLUME 90 fL (79.0-98.0); MONOCYTES # (AUTO) 0.5 K/uL (0.0-1.0); MONOCYTES % (AUTO) 6.8 % (1.7-9.3); NEUTROPHILS # (AUTO) 3.9 K/uL (1.8-7.7); NEUTROPHILS % (AUTO) 48.9 % (40.0-70.0); PLATELET COUNT (AUTO) 314 K/uL (130-430); RED BLOOD CELL COUNT(AUTO) 4.88 MIL/uL (4.2-6.2); RED CELL DISTRIBUTION WIDTH 13.6 % (9.0-15.0)
[2020-09-15 09:17] LABS: ALANINE AMINOTRANSFERASE 25 U/L (12-78); ANION GAP 7 (5-15); ASPARTATE AMINOTRANSFERASE 21 U/L (10-37); CALCIUM 8.9 mg/dL (8.4-11.0); CHLORIDE 102 mmol/L (98-107); CREATININE 1.03 mg/dL (0.55-1.30); GLUCOSE 72 mg/dL (70-99); POTASSIUM 3.8 mmol/L (3.5-5.1); SODIUM SERUM 141 mmol/L (136-145); TOTAL BILIRUBIN 0.5 mg/dL (0.0-1.0); UREA NITROGEN, BLOOD 14 mg/dL (8-21)
[2020-09-15 09:18] LABS: ALBUMIN 4.3 g/dL (3.4-4.8); GFR AFRICAN AMERICAN 102 mL/min (>90); THYROID STIMULATING HORMONE 2.03 uIu/mL (0.36-3.74)
[2020-09-15 09:34] LABS: CHOLESTEROL 160 mg/dL (<200); HDL CHOLESTEROL 63 mg/dL (>45); LDL CHOLESTEROL 88 mg/dL (<100); TRIGLYCERIDES 60 mg/dL (30-150)
[2020-09-15 09:38] LABS: C-REACTIVE PROTEIN QUANT < 0.2 mg/dL (0-0.5)
[2020-09-15 10:03] LABS: ERYTHROCYTE SEDIMENTATION RATE 4 MM/HR (0-15)
[2020-09-16 07:06] LABS: HEMOGLOBIN A1C 5.3 % (4.8-5.6)
== END 2020-09-15 13:48 | disposition home or self-care (01) ==
LOC: SLB 06:24
PROVIDERS: ATTEND Internal Medicine
DX: E03.9 Hypothyroidism, unspecified (principal); E04.1 Nontoxic single thyroid nodule; E56.9 Vitamin deficiency, unspecified; E55.9 Vitamin D deficiency, unspecified; E78.5 Hyperlipidemia, unspecified; F33.1 Major depressive disorder, recurrent, moderate
CPT/HCPCS: 36415; 80053; 80061; 82306; 82607; 83036; 84439; 84443; 85025; 85651-TC; 86140; 86376

== ENCOUNTER 2020-10-09 08:02 | Outpatient (CLI) | payer OTHER | END 2020-10-09 18:06 | disposition home or self-care (01) | LOC: SUS 08:02 | PROVIDERS: ATTEND Internal Medicine | DX: E04.1 Nontoxic single thyroid nodule (principal) | CPT/HCPCS: 76536-TC ==

== ENCOUNTER 2021-02-25 15:45 | Outpatient (CLI) | payer OTHER | END 2021-02-25 20:46 | disposition home or self-care (01) | LOC: SDS 15:45 | PROVIDERS: ATTEND Otolaryngology | DX: Z20.822 Contact with and (suspected) exposure to COVID-19 (principal) | CPT/HCPCS: 36415 ==

== ENCOUNTER → 2021-04-29 | Outpatient (CLI) | payer OTHER ==
[2021-04-29 22:13] LABS: BASOPHILS % (AUTO) 0.5 % (0.0-2.0); EOSINOPHILS # (AUTO) 0.3 K/uL (0.0-0.4); EOSINOPHILS % (AUTO) 3.9 % (0.0-4.0); HEMATOCRIT 40.5 % (36-54); HEMOGLOBIN 13.4 g/dL (14.0-18.0); LYMPHOCYTES % (AUTO) 37.8 % (20.5-51.5); MEAN CORPUSCULAR HEMOGLOBIN 29 pg (27-31); MEAN CORPUSCULAR HGB CONC 33 % (32-36); MEAN CORPUSCULAR VOLUME 87 fL (79.0-98.0); MONOCYTES # (AUTO) 0.7 K/uL (0.0-1.0); MONOCYTES % (AUTO) 9.1 % (1.7-9.3); NEUTROPHILS # (AUTO) 3.9 K/uL (1.8-7.7); NEUTROPHILS % (AUTO) 48.7 % (40.0-70.0); PLATELET COUNT (AUTO) 325 K/uL (130-430); RED BLOOD CELL COUNT(AUTO) 4.68 MIL/uL (4.2-6.2); RED CELL DISTRIBUTION WIDTH 12.6 % (9.0-15.0)
[2021-04-29 23:00] LABS: ALBUMIN 4.3 g/dL (3.4-4.8); CALCIUM 9.3 mg/dL (8.4-11.0); CREATININE 0.96 mg/dL (0.55-1.30); POTASSIUM 3.9 mmol/L (3.5-5.1); THYROID STIMULATING HORMONE 5.38 uIu/mL (0.36-3.74); TOTAL BILIRUBIN 0.2 mg/dL (0.0-1.0)
== END | disposition home or self-care (01) ==
LOC: SLB 20:57
PROVIDERS: ATTEND Internal Medicine
DX: E03.9 Hypothyroidism, unspecified (principal)
CPT/HCPCS: 36415; 80053; 84439; 84443; 85025

== ENCOUNTER 2021-07-12 08:05 | Outpatient (CLI) | payer OTHER ==
[2021-07-12 09:41] LABS: THYROID STIMULATING HORMONE 4.64 uIu/mL (0.36-3.74)
== END 2021-07-12 20:44 | disposition home or self-care (01) ==
LOC: SLB 08:05
PROVIDERS: ATTEND Internal Medicine
DX: E03.9 Hypothyroidism, unspecified (principal)
CPT/HCPCS: 36415; 84439; 84443

== ENCOUNTER 2021-09-13 09:30 | Emergency (ER) | payer OTHER ==
[~2021-09-13] VITALS: Ht 172.7 cm; Wt 65.8 kg
[2021-09-13 09:36] VITALS: BP_SYST 129
[2021-09-13 09:59] LABS: BASOPHILS % (AUTO) 0.5 % (0.0-2.0); EOSINOPHILS # (AUTO) 0.9 K/uL (0.0-0.4); EOSINOPHILS % (AUTO) 12.6 % (0.0-4.0); HEMATOCRIT 39.4 % (36-54); HEMOGLOBIN 13.2 g/dL (14.0-18.0); LYMPHOCYTES # (AUTO) 2.7 K/uL (1.0-5.5); LYMPHOCYTES % (AUTO) 36.7 % (20.5-51.5); MEAN CORPUSCULAR HEMOGLOBIN 29 pg (27-31); MEAN CORPUSCULAR HGB CONC 34 % (32-36); MEAN CORPUSCULAR VOLUME 86 fL (79.0-98.0); MONOCYTES # (AUTO) 0.5 K/uL (0.0-1.0); MONOCYTES % (AUTO) 7.4 % (1.7-9.3); NEUTROPHILS # (AUTO) 3.1 K/uL (1.8-7.7); NEUTROPHILS % (AUTO) 42.8 % (40.0-70.0); PLATELET COUNT (AUTO) 258 K/uL (130-430); RED BLOOD CELL COUNT(AUTO) 4.57 MIL/uL (4.2-6.2); WHITE BLOOD COUNT (AUTO) 7.3 K/uL (4.8-10.8)
[2021-09-13 10:32] LABS: ANION GAP 9 (5-15); CALCIUM 8.3 mg/dL (8.4-11.0); CHLORIDE 100 mmol/L (98-107); CREATININE 1.03 mg/dL (0.55-1.30); GFR AFRICAN AMERICAN 102 mL/min (>90); GLUCOSE 75 mg/dL (70-99); POTASSIUM 3.2 mmol/L (3.5-5.1); SODIUM SERUM 138 mmol/L (136-145); UREA NITROGEN, BLOOD 20 mg/dL (8-21)
[2021-09-13 10:37] LABS: C-REACTIVE PROTEIN QUANT < 0.2 mg/dL (0-0.5)
[2021-09-13 10:38] LABS: ALANINE AMINOTRANSFERASE 29 U/L (12-78); ALBUMIN 3.9 g/dL (3.4-4.8); ASPARTATE AMINOTRANSFERASE 21 U/L (10-37); TOTAL BILIRUBIN 0.3 mg/dL (0.0-1.0)
[2021-09-13] MEDS ORDERED: PRED20TA PO (11:17)
[2021-09-13] MEDS ORDERED: ALBMDI INH (11:18)
[2021-09-13 11:19] VITALS: BP_SYST 129
[2021-09-13] MEDS ORDERED: EPINEPHRINE HCL/PF 1 MG/ML AMP ONE (23:09)
== END 2021-09-13 11:19 | disposition home or self-care (01) ==
LOC: SED 09:30
DX: J20.9 Acute bronchitis, unspecified (principal); K21.9 Gastro-esophageal reflux disease without esophagitis; Z88.5 Allergy status to narcotic agent; Z88.6 Allergy status to analgesic agent
CPT/HCPCS: 36415; 71045; 80053; 83880; 85025; 86140; 87101; 99284; J0171

== ENCOUNTER 2021-10-10 08:09 | Outpatient (CLI) | payer OTHER ==
[~2021-10-10 08:09] MED LIST changes: +ALBMDI INH; +PRED20TA PO
[2021-10-10 08:38] LABS: BASOPHILS % (AUTO) 0.3 % (0.0-2.0); EOSINOPHILS # (AUTO) 0.7 K/uL (0.0-0.4); HEMOGLOBIN 12.9 g/dL (14.0-18.0); LYMPHOCYTES # (AUTO) 2.5 K/uL (1.0-5.5); LYMPHOCYTES % (AUTO) 27.4 % (20.5-51.5); MEAN CORPUSCULAR HEMOGLOBIN 29 pg (27-31); MEAN CORPUSCULAR HGB CONC 34 % (32-36); MEAN CORPUSCULAR VOLUME 86 fL (79.0-98.0); MONOCYTES # (AUTO) 0.6 K/uL (0.0-1.0); MONOCYTES % (AUTO) 6.5 % (1.7-9.3); NEUTROPHILS # (AUTO) 5.2 K/uL (1.8-7.7); NEUTROPHILS % (AUTO) 57.8 % (40.0-70.0); PLATELET COUNT (AUTO) 266 K/uL (130-430); RED BLOOD CELL COUNT(AUTO) 4.41 MIL/uL (4.2-6.2)
[2021-10-10 08:50] LABS: ALBUMIN 3.9 g/dL (3.4-4.8); CALCIUM 7.8 mg/dL (8.4-11.0); CREATININE 1.04 mg/dL (0.55-1.30); POTASSIUM 3.4 mmol/L (3.5-5.1); THYROID STIMULATING HORMONE 3.23 uIu/mL (0.36-3.74); TOTAL BILIRUBIN 0.1 mg/dL (0.0-1.0)
[2021-10-11 07:06] LABS: HEMOGLOBIN A1C 5.3 % (4.8-5.6)
== END 2021-10-10 20:39 | disposition home or self-care (01) ==
LOC: SUS 08:09
PROVIDERS: ATTEND Internal Medicine
DX: E04.1 Nontoxic single thyroid nodule (principal); E03.9 Hypothyroidism, unspecified; R73.9 Hyperglycemia, unspecified
CPT/HCPCS: 36415; 76536-TC; 80053; 83036; 84439; 84443; 85025; 86376

== ENCOUNTER 2021-12-12 20:18 | Outpatient (CLI) | payer OTHER ==
[2021-12-13 02:13] LABS: BASOPHILS % (AUTO) 0.5 % (0.0-2.0); EOSINOPHILS # (AUTO) 0.3 K/uL (0.0-0.4); EOSINOPHILS % (AUTO) 2.7 % (0.0-4.0); HEMATOCRIT 37.7 % (36-54); HEMOGLOBIN 12.8 g/dL (14.0-18.0); LYMPHOCYTES % (AUTO) 31.8 % (20.5-51.5); MEAN CORPUSCULAR HEMOGLOBIN 30 pg (27-31); MEAN CORPUSCULAR HGB CONC 34 % (32-36); MEAN CORPUSCULAR VOLUME 87 fL (79.0-98.0); MONOCYTES # (AUTO) 0.8 K/uL (0.0-1.0); MONOCYTES % (AUTO) 8.7 % (1.7-9.3); NEUTROPHILS # (AUTO) 5.3 K/uL (1.8-7.7); NEUTROPHILS % (AUTO) 56.3 % (40.0-70.0); PLATELET COUNT (AUTO) 289 K/uL (130-430); RED BLOOD CELL COUNT(AUTO) 4.31 MIL/uL (4.2-6.2); RED CELL DISTRIBUTION WIDTH 13.2 % (9.0-15.0); WHITE BLOOD COUNT (AUTO) 9.4 K/uL (4.8-10.8)
[2021-12-13 02:27] LABS: ALBUMIN 4.4 g/dL (3.4-4.8); CALCIUM 9.4 mg/dL (8.4-11.0); CREATININE 1.13 mg/dL (0.55-1.30); FREE T4 (FREE THYROXINE) 1.2 ng/dl (0.8-1.5); POTASSIUM 3.7 mmol/L (3.5-5.1); THYROID STIMULATING HORMONE 3.84 uIu/mL (0.36-3.74); TOTAL BILIRUBIN 0.4 mg/dL (0.0-1.0)
== END 2021-12-12 21:19 | disposition home or self-care (01) ==
LOC: SLB 20:18
PROVIDERS: ATTEND Internal Medicine
DX: E03.9 Hypothyroidism, unspecified (principal); E55.9 Vitamin D deficiency, unspecified
CPT/HCPCS: 36415; 80053; 82306; 84439; 84443; 85025; 86376

== ENCOUNTER 2022-01-22 15:19 | Outpatient (CLI) | payer OTHER | END 2022-01-22 20:38 | disposition home or self-care (01) | LOC: SRD 15:19 | PROVIDERS: ATTEND Otolaryngology | DX: J34.89 Other specified disorders of nose and nasal sinuses (principal); D38.5 Neoplasm of uncertain behavior of other respiratory organs | CPT/HCPCS: 70486-TC; 76376 ==

== ENCOUNTER 2022-01-30 07:30 | Outpatient (CLI) | payer OTHER ==
[2022-01-30 07:39] LABS: BASOPHILS # (AUTO) 0.1 K/uL (0.0-0.2); BASOPHILS % (AUTO) 0.7 % (0.0-2.0); EOSINOPHILS % (AUTO) 11.8 % (0.0-4.0); HEMATOCRIT 38.9 % (36-54); HEMOGLOBIN 13.3 g/dL (14.0-18.0); LYMPHOCYTES # (AUTO) 3.6 K/uL (1.0-5.5); LYMPHOCYTES % (AUTO) 42.7 % (20.5-51.5); MEAN CORPUSCULAR HEMOGLOBIN 30 pg (27-31); MEAN CORPUSCULAR HGB CONC 34 % (32-36); MEAN CORPUSCULAR VOLUME 87 fL (79.0-98.0); MONOCYTES # (AUTO) 0.6 K/uL (0.0-1.0); MONOCYTES % (AUTO) 7.6 % (1.7-9.3); NEUTROPHILS # (AUTO) 3.1 K/uL (1.8-7.7); NEUTROPHILS % (AUTO) 37.2 % (40.0-70.0); PLATELET COUNT (AUTO) 311 K/uL (130-430); RED BLOOD CELL COUNT(AUTO) 4.47 MIL/uL (4.2-6.2); RED CELL DISTRIBUTION WIDTH 12.9 % (9.0-15.0); WHITE BLOOD COUNT (AUTO) 8.4 K/uL (4.8-10.8)
[2022-01-30 07:56] LABS: CALCIUM 8.8 mg/dL (8.4-11.0); CREATININE 1.01 mg/dL (0.55-1.30)
== END 2022-01-30 16:00 | disposition home or self-care (01) ==
LOC: SLB 07:30
PROVIDERS: ATTEND Otolaryngology
DX: Z01.818 Encounter for other preprocedural examination (principal); J34.89 Other specified disorders of nose and nasal sinuses
CPT/HCPCS: 36415; 71046-TC; 80048; 85025; 93005

== ENCOUNTER 2022-02-14 11:10 | Day surgery (SDC) | payer OTHER ==
[~2022-02-14] VITALS: Ht 172.7 cm; Wt 66.2 kg
[2022-02-14] MEDS ORDERED: ONDANSETRON HCL 4 MG/2 ML VIAL ONE ×2 (11:40→12:30)
[2022-02-14] MEDS ORDERED: ONDANSETRON HCL 4 MG/2 ML VIAL IVP ONE (11:45)
[2022-02-14] MEDS ORDERED: ACETAMINOPHEN I.V. 1000 MG 100 ML IV ONE (12:28)
[2022-02-14] MEDS ORDERED: NS 1000 ML IV.SOLN IV ONE (12:30)
[2022-02-14] MEDS ORDERED: LIDOCAINE/EPI 2% 1:100000 20 ML VIAL INJ ONE (12:30)
[2022-02-14] MEDS ORDERED: ePHEDrine sulfate 50 MG/ML VIAL ONE (12:30)
[2022-02-14] MEDS ORDERED: WATER FOR IRRIGATION,STERILE 1,000 ML IRRIG.SOLN IR ONE (12:30)
[2022-02-14] MEDS ORDERED: ROCURONIUM BROMIDE 10 MG/ML (ZEMURON) ONE (12:30)
[2022-02-14] MEDS ORDERED: fentaNYL CITRATE 250 MCG/5 ML AMP ONE (12:30)
[2022-02-14] MEDS ORDERED: DESFLURANE 15 MIN GAS INH ONE (12:30)
[2022-02-14] MEDS ORDERED: LR 1,000 ML IV.SOLN IV ONE (12:30)
[2022-02-14] MEDS ORDERED: NS IRRIG SOLN 1000 ML IR ONE (12:30)
[2022-02-14] MEDS ORDERED: SUGAMMADEX SODIUM 200 MG/2 ML VIAL IV ONE (12:30)
[2022-02-14] MEDS ORDERED: PROPOFOL 200MG/ 20ML VIAL (DIPRIVAN) IV ONE (12:30)
[2022-02-14] MEDS ORDERED: MIDAZOLAM HCL 5 MG/5 ML VIAL ONE (12:30)
[2022-02-14] MEDS ORDERED: LIDOCAINE 2%, 20 ML MDV ONE (12:30)
[2022-02-14] MEDS ORDERED: DEXAMETHASONE SOD PHOSPHATE 4 MG/ML VIAL ONE (12:30)
[2022-02-14] MEDS ORDERED: LABETALOL 100 MG/ 20ML VIAL IVP PRN (13:15)
[2022-02-14] MEDS ORDERED: LR 1,000 ML IV SCH (13:15)
[2022-02-14] MEDS ORDERED: hydrALAZINE HCL 20 MG/ML VIAL IVP PRN (13:15)
[2022-02-14] MEDS ORDERED: MEPERIDINE HCL/PF 25 MG/ML DISP.SYRIN IVP PRN (13:15)
[2022-02-14] MEDS ORDERED: MIDAZOLAM HCL 2 MG/2 ML VIAL (VERSED) IVP PRN (13:15)
[2022-02-14] MEDS ORDERED: HYDROmorphone 1 MG/ML INJ. CARTRIDGE IVP PRN ×2 (13:15)
[2022-02-14] MEDS ORDERED: METOCLOPRAMIDE HCL 10 MG/2 ML VIAL IVP PRN (13:15)
[2022-02-14 17:36] VITALS: BP_SYST 112
== END 2022-02-14 17:30 | disposition home or self-care (01) ==
LOC: SDS 11:10
PROVIDERS: ATTEND Otolaryngology
DX: J32.4 Chronic pansinusitis (principal); R09.82 Postnasal drip; K21.9 Gastro-esophageal reflux disease without esophagitis; F33.9 Major depressive disorder, recurrent, unspecified; Z79.899 Other long term (current) drug therapy
CPT/HCPCS: 36415; 87426; 31255; 42831; 31256; 87070; 87075; 87101; 88305; J3490; J1100; J2001; J2250; J3465; J2405; J2704; J3010; J7120; J7030; J0131; 88311

== ENCOUNTER 2022-03-05 12:42 | Outpatient (CLI) | payer OTHER ==
[2022-03-05 13:20] LABS: BASOPHILS % (AUTO) 0.5 % (0.0-2.0); EOSINOPHILS # (AUTO) 0.6 K/uL (0.0-0.4); EOSINOPHILS % (AUTO) 8.1 % (0.0-4.0); HEMOGLOBIN 13.2 g/dL (14.0-18.0); LYMPHOCYTES # (AUTO) 2.4 K/uL (1.0-5.5); LYMPHOCYTES % (AUTO) 30.8 % (20.5-51.5); MEAN CORPUSCULAR HEMOGLOBIN 29 pg (27-31); MEAN CORPUSCULAR HGB CONC 34 % (32-36); MEAN CORPUSCULAR VOLUME 87 fL (79.0-98.0); MONOCYTES # (AUTO) 0.6 K/uL (0.0-1.0); MONOCYTES % (AUTO) 7.3 % (1.7-9.3); NEUTROPHILS # (AUTO) 4.1 K/uL (1.8-7.7); NEUTROPHILS % (AUTO) 53.3 % (40.0-70.0); PLATELET COUNT (AUTO) 317 K/uL (130-430); RED BLOOD CELL COUNT(AUTO) 4.51 MIL/uL (4.2-6.2); RED CELL DISTRIBUTION WIDTH 12.7 % (9.0-15.0); WHITE BLOOD COUNT (AUTO) 7.7 K/uL (4.8-10.8)
[2022-03-05 13:42] LABS: ALBUMIN 4.4 g/dL (3.4-4.8); CALCIUM 9.2 mg/dL (8.4-11.0); CREATININE 0.86 mg/dL (0.55-1.30); THYROID STIMULATING HORMONE 4.04 uIu/mL (0.36-3.74); TOTAL BILIRUBIN 0.3 mg/dL (0.0-1.0)
[2022-03-05 13:49] LABS: TOTAL IRON BIND. CAPACITY 454 ug/dL (250-450)
[2022-03-05 14:02] LABS: ERYTHROCYTE SEDIMENTATION RATE 7 MM/HR (0-15)
== END 2022-03-05 18:48 | disposition home or self-care (01) ==
LOC: SLB 12:42
PROVIDERS: ATTEND Internal Medicine
DX: E03.9 Hypothyroidism, unspecified (principal); D72.10 Eosinophilia, unspecified
CPT/HCPCS: 36415; 80053; 83540; 83550; 84439; 84443; 85025; 85651-TC; 86376

== ENCOUNTER 2022-03-16 20:05 | Emergency (ER) | payer OTHER ==
[~2022-03-16] VITALS: Ht 172.7 cm; Wt 67.1 kg
[2022-03-16 20:15] VITALS: BP_SYST 127
--- NOTE | 2022-03-16 20:28 | NUR ---
Patient to ER bed 7 to gown for evaluation. Side rails up. Report given to SADIQ ARAUJO.
[2022-03-16] MEDS ORDERED: NACL 0.9% 1,000 ML IV ONE (20:30)
--- NOTE | 2022-03-16 20:30 | NUR ---
GIL KIM Sing at bedside.
--- NOTE | 2022-03-16 20:45 | NUR ---
Patient A/Ox4, VSS, ambulatory, resp even and unlabored. Patient lying in bed with safety precautions in place. Patient states "I started having flank pain about an hour ago." Nad noted at this time.
--- NOTE | 2022-03-16 20:55 | NUR ---
# 20 gauge angiocath placed to right AC. Use of asceptic technique. Opsite placed over site. Blood return noted. Blood for lab drawn from site. Flushed with 10 cc of normal saline. No evidence of infiltration noted. Patient tolerated well.
[2022-03-16 21:43] LABS: BASOPHILS % (AUTO) 0.3 % (0.0-2.0); EOSINOPHILS # (AUTO) 0.4 K/uL (0.0-0.4); EOSINOPHILS % (AUTO) 5.9 % (0.0-4.0); HEMATOCRIT 36.8 % (36-54); HEMOGLOBIN 12.5 g/dL (14.0-18.0); LYMPHOCYTES # (AUTO) 2.5 K/uL (1.0-5.5); LYMPHOCYTES % (AUTO) 37.3 % (20.5-51.5); MEAN CORPUSCULAR HEMOGLOBIN 29 pg (27-31); MEAN CORPUSCULAR HGB CONC 34 % (32-36); MEAN CORPUSCULAR VOLUME 86 fL (79.0-98.0); MONOCYTES # (AUTO) 0.6 K/uL (0.0-1.0); MONOCYTES % (AUTO) 9.2 % (1.7-9.3); NEUTROPHILS # (AUTO) 3.1 K/uL (1.8-7.7); NEUTROPHILS % (AUTO) 47.3 % (40.0-70.0); PLATELET COUNT (AUTO) 270 K/uL (130-430); RED BLOOD CELL COUNT(AUTO) 4.27 MIL/uL (4.2-6.2); RED CELL DISTRIBUTION WIDTH 12.7 % (9.0-15.0); WHITE BLOOD COUNT (AUTO) 6.6 K/uL (4.8-10.8)
[2022-03-16] MEDS ORDERED: IBUP-1969 PO (21:43)
--- NOTE | 2022-03-16 22:30 | NUR ---
Patient resting in bed with safety precautions in place.
[2022-03-16] MEDS ORDERED: KETOROLAC TROMETHAMINE 15 MG VIAL IVP ONE (23:00)
[2022-03-16 23:11] LABS: CALCIUM 9.4 mg/dL (8.4-11.0); CREATININE 1.15 mg/dL (0.55-1.30)
[2022-03-16 23:16] LABS: TOTAL BILIRUBIN 0.2 mg/dL (0.0-1.0)
[2022-03-16] MEDS ORDERED: METH-799 PO (23:37)
--- NOTE | 2022-03-16 23:40 | NUR ---
Patient given written and verbal discharge instructions and verbalizes understanding. ER MD discussed with patient the results and treatment provided. Patient in stable condition. ID arm band removed. IV catheter removed intact and dressing applied, no active bleeding. Rx of Ibuprofen given. Patient educated on pain management and to follow up with PMD. Pain Scale 0/10. Opportunity for questions provided and answered. Medication side effect fact sheet provided. Patient in stable condition upon discharge.
[2022-03-17] MEDS ORDERED: methocarbamoL 500 MG TABLET PO ONE
[2022-03-17] MEDS ORDERED: methocarbamoL 500 MG TABLET ONE (06:12)
== END 2022-03-16 23:40 | disposition home or self-care (01) ==
LOC: SED 20:05
DX: R10.9 Unspecified abdominal pain (principal); K21.9 Gastro-esophageal reflux disease without esophagitis; Z88.5 Allergy status to narcotic agent; Z88.6 Allergy status to analgesic agent; Z91.040 Latex allergy status; Z79.899 Other long term (current) drug therapy
CPT/HCPCS: 99284; 74176; 96374; 96361; 80053; 85025; 36415; 76376; 81002; J1885; J7030

== ENCOUNTER → 2022-06-22 | Outpatient (CLI) | payer OTHER ==
[~2022-06-22] MED LIST changes: +IBUP-1969 PO; +METH-799 PO
[2022-06-23 07:05] LABS: BASOPHILS # (AUTO) 0.1 K/uL (0.0-0.2); BASOPHILS % (AUTO) 0.7 % (0.0-2.0); EOSINOPHILS # (AUTO) 0.3 K/uL (0.0-0.4); EOSINOPHILS % (AUTO) 4.1 % (0.0-4.0); HEMATOCRIT 41.3 % (36-54); LYMPHOCYTES # (AUTO) 3.3 K/uL (1.0-5.5); LYMPHOCYTES % (AUTO) 41.7 % (20.5-51.5); MEAN CORPUSCULAR HEMOGLOBIN 29 pg (27-31); MEAN CORPUSCULAR HGB CONC 34 % (32-36); MEAN CORPUSCULAR VOLUME 87 fL (79.0-98.0); MONOCYTES # (AUTO) 0.6 K/uL (0.0-1.0); NEUTROPHILS # (AUTO) 3.6 K/uL (1.8-7.7); NEUTROPHILS % (AUTO) 45.5 % (40.0-70.0); PLATELET COUNT (AUTO) 315 K/uL (130-430); RED BLOOD CELL COUNT(AUTO) 4.77 MIL/uL (4.2-6.2)
[2022-06-23 07:23] LABS: ALBUMIN 4.1 g/dL (3.4-4.8); CALCIUM 8.7 mg/dL (8.4-11.0); CREATININE 1.17 mg/dL (0.55-1.30); FREE T4 (FREE THYROXINE) 1.1 ng/dL (0.6-1.6); THYROID STIMULATING HORMONE 5.43 uIu/mL (0.34-4.82); TOTAL BILIRUBIN 0.4 mg/dL (0.0-1.0)
== END | disposition home or self-care (01) ==
LOC: SGI 19:03
PROVIDERS: ATTEND Internal Medicine
DX: E03.9 Hypothyroidism, unspecified (principal)
CPT/HCPCS: 36415; 80053; 84439; 84443; 85025; 86376